=== PATIENT | female | born 2000 | race Caucasian/White ===

== ENCOUNTER 2024-04-01 23:19 | Emergency (ER) | payer OTHER, SELFPAY ==
[2024-04-01 23:26] VITALS: BP 118/75; PULSE 47; RESP 18; TEMP 36.8; O2SAT 98; BMI 20.8
[2024-04-02 00:10] LABS: Appearance Urine Cloudy (Clear); Bilirubin Urine 1+ (Negative); Blood Urine 3+ (Negative); Color Urine Yellow (Yellow); Glucose Urine Trace (Negative); Ketones Urine Trace (Negative); Leukocyte Esterase Urine 3+ (Negative); Nitrite Urine Positive (Negative); Protein Urine 3+ (Negative); Specific Gravity Urine >= 1.030 (1.000-1.030); Ur HCG Qualitative* Negative (Negative)
--- NOTE | 2024-04-02 00:10 | ED.GENADULT ---
HPI - General Adult General Chief complaint: Diarrhea Stated complaint: Diarrhea, abdominal pain Time Seen by Provider: 04/01/24 23:20 Source: patient Mode of arrival: ambulatory Limitations: no limitations History of Present Illness HPI narrative: 24-year-old female presents the emergency department for evaluation of diarrhea. She woke in the morning with some mild urinary frequency and faint burning. She took some [id number] Uristat and symptoms did improve. No fever. The medication did change her urine color of course but she has not noticed any sheldon hematuria. She has had no fever. This evening at around 8:00 p.m., she started having watery stools and cramping. No bloody stools. No fever. She had nausea she think she did have 1 small bout of emesis with this but has not had recurrent emesis. Had been drinking and eating normally through the day prior to 8:00 p.m.. No international travel. No recent use of antibiotics. No sick contacts. Try taking some Tylenol with minimal improvement in her symptoms. Has not tried Imodium or other antidiarrheal medications. Has no history of prior pelvic or abdominal surgeries. No trauma or injury. Dysuria has ceased. She comes to the ED because with the cramping episodes, the pain was unbearable. Past medical history benign per her report. No major long-term health problems. No long-term prescription medications. Has an IUD for contraception. Nonsmoker. ROS is notable for the GI in generalized symptoms as described above, otherwise denies times 12 systems. Related Data Home Medications ?Medication ?Instructions ?Recorded ?Confirmed No Known Home Medications 04/01/24 04/01/24 Allergies Allergy/AdvReac Type Severity Reaction Status Date / Time No Known Drug Allergies Allergy Verified 04/01/24 23:32 [facility] Social History Smoking Status: Never smoker Do you use any of these nicotine containing products: None Second hand tobacco smoke exposure: No Non-prescribed substance use: denies use service: No Exam Const: Vital Signs, click to edit/add: Vital Signs - 24 hr 04/01/24 23:26 04/02/24 01:09 Temperature 98.3 F 98.0 F Pulse Rate [Pulse Oximeter] 47 L 54 L Respiratory Rate 18 16 Blood Pressure [Ri ght Upper Arm] 118/75 118/60 Pulse Oximetry 98 Oxygen Delivery Me thod Room Air Documenting provider has reviewed patient's vital signs: yes Common normals: no apparent distress General appearance: well kempt HENMT: Common normals: normocephalic and moist oral mucous membranes Head and scalp: normocephalic Face and sinus: normal facial exam Mouth: oral and palatal mucosa normal Throat: posterior oropharynx normal Eye: Common normals: conjunctivae normal and no scleral icterus General eye: normal appearance of both eyes Conjunctiva: conjunctiva(e) normal Neck & C-Spine: Common normals: no lymphadenopathy General: normal visual inspection Resp: Common normals: normal respiratory effort, no use of accessory muscles and clear to auscultation bilaterally Effort & inspection: able to speak in complete sentences Auscultation: clear to auscultation bilaterally Cardio: Common normals: regular rate, regular rhythm, S1 normal heart sound, S2 normal heart sound and no murmurs Rate: regular rate Rhythm: regular rhythm Heart sounds: S1 normal and S2 normal GI: Common normals: Normal to inspection, nondistended, normoactive bowel sounds present, soft to palpation, no hepatosplenomegaly and no masses Palpation: soft and no hepatosplenomegaly Other: Mildly tender to palpation suprapubic region only. Certainly no rebound tenderness or guarding. Back & Pelvis: Common normals: thoracic and lumbar spine normal to inspection Extremity: Common normals: normal to inspection, normal capillary refill and no pedal edema Psych: Common normals: speech normal Appearance: well kempt Attitude: engaged Activity/motor behavior: appropriate eye contact Speech: normal speech Insight: insight good Judgement: judgment good Skin: Common normals: no rashes or lesions noted General skin exam: no rashes or lesions noted Course Course ED Course: 24-year-old female presenting with a few hours of nausea and diarrhea. No fever, bloody diarrhea or features of severe infection. Abdominal exam is relatively reassuring. Would like a urinalysis, test to look for any signs of infection but also for ketones, bilirubin and signs of dehydration. Will give 4 mg of oral Imodium, 4 mg of Zofran and 10 mg of oral Toradol and reassess. Will try an oral fluid challenge. There does not seem to be any critical signs of diverticulitis, severe intra-abdominal infection, colitis, sepsis, pancreatitis, organ dysfunction or other abnormality. With an IUD, low suspicion for or complication. Will await lab findings. Anticipate that she will be discharged on Zofran, Toradol and [id number] Imodium. Reevaluation(s) Time of Reevaluation #1: 00:57 Reevaluation #1: Patient counseled on findings, positive for bladder infection. Has not had any vomiting or recurrent diarrhea here. I do recommend antibiotics for the bladder infection. Will treat with Cipro 500 b.i.d. for 5 days. Offered 1st dose here and script to pharmacy verses InStent meds, she would prefer InStent meds. Counseled on Tylenol and ibuprofen as needed for discomfort. Okay to use [id number] Uristat or azo if needed as well. Discussed the diarrhea. Imodium up to 6 times daily recommended. Continue to push fluids. Alarm symptoms reviewed that would warrant ED presentation. Vital Signs Vital signs: Initial Vital Signs Temperature 98.3 F 04/01/24 23:26 Temperature Source Temporal Artery Scan 04/01/24 23:26 Pulse Rate 47 L 04/01/24 23:26 Respiratory Rate 18 04/01/24 23:26 Blood Pressure 118/75 04/01/24 23:26 Blood Pressure Mean 89 04/01/24 23:26 Blood Pressure Position Sitting 04/01/24 23:26 Pulse Oximetry 98 04/01/24 23:26 Oxygen Delivery Method Room Air 04/01/24 23:26 Vital Signs Temperature 98.3 F 04/01/24 23:26 Pulse Rate 47 L 04/01/24 23:26 Respiratory Rate 18 04/01/24 23:26 Blood Pressure 118/75 04/01/24 23:26 Pulse Oximetry 98 04/01/24 23:26 Oxygen Delivery Method Room Air 04/01/24 23:26 Temperature 98.0 F 04/02/24 01:09 Pulse Rate 54 L 04/02/24 01:09 Respiratory Rate 16 04/02/24 01:09 Blood Pressure 118/60 04/02/24 01:09 Pulse Oximetry 98 04/01/24 23:26 Oxygen Delivery Method Room Air 04/01/24 23:26 Medications Administered Medications: Discontinued Medications Generic Name Dose Route Start Last Admin Trade Name Freq PRN Reason Stop Dose Admin Ketorolac Tromethamine 10 mg 04/02/24 00:09 04/02/24 00:17 Ketorolac 10 Mg Tablet PO 04/02/24 00:10 10 mg ONCE ONE Administration Loperamide HCl 4 mg 04/02/24 00:09 04/02/24 00:17 Loperamide Hcl 2 Mg Capsule PO 04/02/24 00:10 4 mg ONCE ONE Administration Ondansetron HCl 4 mg 04/02/24 00:09 04/02/24 01:05 Ondansetron Odt 4 Mg Tab PO 04/02/24 00:10 4 mg ONCE ONE Administration Medical Decision Making Lab Data Lab results reviewed: Yes I reviewed the patient's lab results Lab results narrative: Positive for bladder infection with nitrites, 3+ leukocyte esterase and many bacteria. test negative. Labs: Lab Results 04/01/24 Range/Units 23:58 Urine Color Yellow (Yellow) Urine Appearance Cloudy A (Clear) Urine pH 6.0 (5.0-8.5) Ur Specific [place] >= 1.030 (1.000-1.030) Urine Protein 3+ A (Negative) Urine Glucose (UA) Trace A (Negative) Urine Ketones Trace A (Negative) Urine Blood 3+ A (Negative) Urine Nitrite Positive A (Negative) Urine Bilirubin 1+ A (Negative) Urine Urobilinogen 1.0 (0.2-1.0) Ur Leukocyte Esterase 3+ A (Negative) Urine RBC 50-100 A (0-2) Urine WBC 50-100 A (0-5) Ur Squamous Epith Cells Moderate A (None-Few) Amorphous Sediment Moderate A (None) Urine Bacteria Many A (None) Urine Mucus Moderate A (None) Urine HCG, Qual Negative (Negative) Discharge Plan Discharge Clinical Impression: Gastroenteritis, Urinary tract infection Patient Disposition: Home w/ Parent or Adult Condition: Stable Additional Instructions: As we discussed, your urine is positive for infection. I really do recommend treatment for this. I have started an antibiotic, ciprofloxacin. Take 1 pill 2 times daily for 5 days. You will have extra pills that you do not need to take, please dispose of these and do not save for future infection. It is okay to use Tylenol 1000 mg every 6 hours and or ibuprofen 600 mg every 6 hours as needed for pain. You may also continue taking [id number] Uristat or azo. I do think that the diarrhea is related to a stomach flu and not from the bladder infection. I do think the cramping is from a combination of both. Your given Imodium here in the emergency department. This is a common anti diarrheal medication. You may continue taking this up to 6 times daily. Often, a single dose is sufficient. 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 There were no red flags for severe intra-abdominal infection, metabolic derangement or dehydration. This is good news. Continue pushing fluids. Slowly advance your solid foods once you are feeling better. If you have high fever over 100.4, bloody diarrhea, are unable to hold down even any liquids for over 16 hours, you should be re-evaluated in the clinic or urgent care. You may return to work or school unrestricted tomorrow which would be Monday if the diarrhea improves as expected. Activity Level: No Restrictions Discharge Diet: Regular Prescriptions: No Action No Known Home Medications Follow Up/Referrals: Provider,Not a Local [Primary Care Provider] - Stand Alone Forms: [facility]ence Info Instructions
[2024-04-02 00:15] LABS: Amorphous Sediment Urine Moderate; Bacteria Urine Many; Mucus Urine Moderate; RBC Urine 50-100 (0-2); Squamous Epithelial Cell Urine Moderate (None-Few); WBC Urine 50-100 (0-5)
[2024-04-02] MEDS: LOPERAMIDE HCL 2 MG CAPSULE 4 MG PO (00:17)
[2024-04-02] MEDS: KETOROLAC 10 MG TABLET PO (00:17)
[2024-04-02] MEDS: ONDANSETRON ODT 4 MG TAB PO (01:05)
[2024-04-02 01:09] VITALS: BP 118/60; PULSE 54; RESP 16; TEMP 36.7
== END 2024-04-02 01:10 | disposition home or self-care (01) ==
PROVIDERS: Emergency Provider Family Medicine
DX: K52.9 Noninfective gastroenteritis and colitis, unspecified (principal); N39.0 Urinary tract infection, site not specified
CPT/HCPCS: 81001; 81025; 87086; 87186; 99283; 99284; A9270